=== PATIENT | female | born 1990 | race American Indian/Alaskan Native ===

== ENCOUNTER 2017-06-21 19:23 | Emergency (ER) | payer MEDICAID ==
[2017-06-21 20:07] LABS: Basophils % (Auto) 0.3 % (0.0-1.8); Eosinophils # (Auto) 0.2 K/mm3 (0.0-0.4); Hematocrit 37.2 % (30.3-42.9); Hemoglobin 12.4 gm/dl (10.1-14.3); Lymphocytes # (Auto) 1.3 K/mm3 (1.2-5.4); Lymphocytes % (Auto) 11.9 % (13.4-35.0); Mean Corpuscular HGB Conc 33 % (30-34); Mean Corpuscular Hemoglobin 27 pg (28-32); Mean Corpuscular Volume 81 fl (79-97); Monocytes # (Auto) 0.9 K/mm3 (0.0-0.8); Monocytes % (Auto) 8.7 % (0.0-7.3); Platelet Count 231 K/mm3 (140-440); Red Blood Count 4.61 M/mm3 (3.65-5.03); Red Cell Distribution Width 14.2 % (13.2-15.2)
[2017-06-21 20:18] LABS: Alanine Aminotransferase 17 units/L (7-56); Albumin 3.9 g/dL (3.9-5); BUN/Creatinine Ratio 20; Blood Urea Nitrogen 6 mg/dL (7-17); Calcium 8.6 mg/dL (8.4-10.2); Hemolysis Index 1
[2017-06-21] MEDS ORDERED: NACL 0.9% 1000 ML 1,000 ML IV ONE (20:56)
[2017-06-21] MEDS ORDERED: ZOFRAN IV ONE (20:57)
--- NOTE | 2017-06-21 21:02 | Emergency Department Report ---
ED Abdominal Pain HPI - General Chief Complaint: Abdominal Pain Stated Complaint: PAIN ON LEFT SIDE/18 WEEKS Time Seen by Provider: 06/21/17 20:39 Source: patient Mode of arrival: Ambulatory Limitations: No Limitations - History of Present Illness Initial Comments: Patient is complaining of abdominal pain in the suprapubic area and the right and left lower quadrant and also in the lower back. The pain started 2 days ago of moderate to severe intensity and nonradiating with no aggravating or relieving factor. Patient also complaining of a headache. She denies any fever. She denies any vaginal bleeding. The patient is a 3 and she is presently 18 weeks 4 days Complaint: abdominal pain -: Gradual Location: LLQ, RLQ, suprapubic Radiation: none Migration to: no migration Severity: moderate, severe Quality: aching Consistency: intermittent Improves With: nothing Worsens With: nothing Associated Symptoms: nausea, vomiting - Related Data Previous Rx's Medication Instructions Recorded Last Taken Type Nitrofurantoin [place]/M-Cryst 100 mg PO BID #14 capsule 06/21/17 Unknown Rx [Macrobid CAP] Allergies Allergy/AdvReac Type Severity Reaction Status Date / Time No Known Allergies Allergy Unverified 06/21/17 19:27 ED Review of Systems ROS: Stated complaint: PAIN ON LEFT SIDE/18 WEEKS Other details as noted in HPI Comment: All other systems reviewed and negative ED Past Medical Hx - Past Medical History Previous Medical History?: No - Surgical History Past Surgical History?: No - Social History Smoking Status: Never Smoker Substance Use Type: None - Medications Home Medications: Home Medications Medication Instructions Recorded Confirmed Last Taken Type Nitrofurantoin [place]/M-Cryst 100 mg PO BID #14 capsule 06/21/17 Unknown Rx [Macrobid CAP] ED Physical Exam - General Limitations: No Limitations General appearance: alert, in no apparent distress - Head Head exam: Present: atraumatic, normocephalic - Eye Eye exam: Present: normal appearance. Absent: PERRL - ENT ENT exam: Present: mucous membranes moist - Neck Neck exam: Present: normal inspection. Absent: tenderness - Respiratory Respiratory exam: Present: normal lung sounds bilaterally. Absent: respiratory distress - Cardiovascular Cardiovascular Exam: Present: regular rate, normal rhythm. Absent: systolic murmur, diastolic murmur, rubs, gallop - GI/Abdominal GI/Abdominal exam: Present: soft, distended (gravid uterus), tenderness ( suprapubic tenderness and left lower quadrant tenderness.), normal bowel sounds. Absent: rebound - Rectal Rectal exam: Present: deferred - Extremities Exam Extremities exam: Present: normal inspection, full ROM - Back Exam Back exam: Present: normal inspection, full ROM - Neurological Exam Neurological exam: Present: alert, oriented X3 - Psychiatric Psychiatric exam: Present: normal affect, normal mood - Skin Skin exam: Present: warm, dry, intact, normal color. Absent: rash ED Course Vital Signs 06/21/17 06/21/17 19:27 21:25 Temperature 98 F 98.4 F Pulse Rate 89 69 Respiratory 18 16 Rate Blood Pressure 108/65 Blood Pressure 101/57 [Left] O2 Sat by Pulse 96 100 Oximetry - Reevaluation(s) Reevaluation #1: 06/21/17 22:03 Patient feels much better since that he nausea and vomiting is a lot better. her pain is also a lot better ED Medical Decision Making - Lab Data Result diagrams: 06/21/17 19:41 06/21/17 19:41 Critical care attestation.: If time is entered above; I have spent that time in minutes in the direct care of this critically ill patient, excluding procedure time. ED Disposition Clinical Impression: UTI (urinary tract infection), Hyperemesis Disposition: - TO HOME OR SELFCARE Is pt being admited?: No Does the pt Need Aspirin: No Condition: Stable Instructions: Abdominal Pain (ED) Additional Instructions: Increase oral fluid intake. Take your nausea medication which was given to you by your animal health technician as needed.follow up with your animal health technician in 3-5 days Prescriptions: Nitrofurantoin [place]/M-Cryst [Macrobid CAP] 100 mg PO BID #14 capsule Referrals: JANN YEH MD [Primary Care Provider] - 3-5 Days Time of Disposition: 22:07 Print Language: LATVIAN
[2017-06-21] MEDS ORDERED: TYLENOL PO ONE (21:03)
[2017-06-21 21:21] LABS: Bilirubin,Urine NEG (Negative); Blood,Urine NEG (Negative); Color,Urine Yellow (Yellow); Mucus,Urine 3+ /HPF
[2017-06-21 21:25] VITALS: BP 101/57
[2017-06-21] MEDS ORDERED: MACROBID PO ONE (22:02)
== END 2017-06-21 22:32 | disposition home or self-care (01) ==
LOC: ED 19:23
DX: O23.42 Unspecified infection of urinary tract in pregnancy, second trimester (principal); O21.0 Mild hyperemesis gravidarum; Z3A.18 18 weeks gestation of pregnancy
CPT/HCPCS: 36415; 80053; 81001; 85025; 87086; 96361; 96374; 99283; J2405; J7030

== ENCOUNTER 2017-06-23 17:50 | Emergency (ER) | payer MEDICAID ==
[2017-06-23 18:32] LABS: Basophils % (Auto) 0.1 % (0.0-1.8); Eosinophils # (Auto) 0.1 K/mm3 (0.0-0.4); Eosinophils % (Auto) 0.6 % (0.0-4.3); Hematocrit 38.1 % (30.3-42.9); Hemoglobin 12.3 gm/dl (10.1-14.3); Lymphocytes # (Auto) 0.7 K/mm3 (1.2-5.4); Lymphocytes % (Auto) 6.2 % (13.4-35.0); Mean Corpuscular HGB Conc 32 % (30-34); Mean Corpuscular Hemoglobin 27 pg (28-32); Mean Corpuscular Volume 82 fl (79-97); Monocytes # (Auto) 1.1 K/mm3 (0.0-0.8); Monocytes % (Auto) 8.9 % (0.0-7.3); Platelet Count 235 K/mm3 (140-440); Red Blood Count 4.63 M/mm3 (3.65-5.03); Red Cell Distribution Width 14.3 % (13.2-15.2)
[2017-06-23 18:46] LABS: Alanine Aminotransferase 13 units/L (7-56); Albumin 3.8 g/dL (3.9-5); BUN/Creatinine Ratio 10; Blood Urea Nitrogen 4 mg/dL (7-17); Calcium 8.6 mg/dL (8.4-10.2); Hemolysis Index 1
[2017-06-23 20:08] LABS: Bacteria,Urine 1+ /HPF (Negative); Bilirubin,Urine NEG (Negative); Blood,Urine NEG (Negative); Color,Urine Amber (Yellow); Mucus,Urine 3+ /HPF
--- NOTE | 2017-06-23 20:14 | Ultrasound Report ---
FINAL REPORT EXAM: US OB > = 14 WEEKS FETUS HISTORY: abd pain TECHNIQUE: Obstetrical sonographic imaging was performed. Comparison: None FINDINGS: Images demonstrate single live intrauterine gestation in cephalic presentation. Right lateral placenta grade 0. Calculated AFUA within normal limits subjectively under 24 weeks. heart rate measures 161 beats per minute. Cervical length measures 3.4 centimeters. Too early for anatomical survey. Estimated age as follows: Biparietal diameter 19 weeks 2 days Head circumference 18 weeks 3 days Abdominal circumference 18 weeks 4 days Femur length 18 weeks 1 day Average sonographic gestational age is 18 weeks 4 days with estimated due date of 11/20/2017. HC/AC 1.19. Cephalic index 83.6. Estimated weight 237 grams +/-30 5 grams. There is an anterior uterine fundal fibroid measuring 7.1 centimeters at the left lateral aspect of the uterus exophytically. It is heterogeneous. IMPRESSION: Single live intrauterine gestation in cephalic presentation at 18 weeks 4 days with estimated due date 11/20/2017. heart rate measures 161 beats per minute. Subjectively normal AFUA. Right lateral placenta. 7.1 centimeter left lateral uterine exophytic heterogeneous fibroid. No definite retroplacental abnormality. Cervical length measures 3.4 centimeters, closed.
[2017-06-24] MEDS ORDERED: NORCO 5/325 PO ONE (03:40)
[2017-06-24] MEDS ORDERED: ZOFRAN ODT PO ONE (03:40)
[2017-06-24] MEDS ORDERED: MACROBID PO ONE (03:41)
--- NOTE | 2017-06-24 03:58 | Emergency Department Report ---
HPI - General Chief Complaint: Abdominal Pain Time Seen by Provider: 06/24/17 03:16 - HPI HPI: The patient is a 27-year-old female, EGA 18 was, presents for evaluation of abdominal pain. The patient reports left lower quadrant abdominal pain for the past 3 days, crampy in quality, moderate to severe, exacerbated with movement. The patient also reports associated mild dysuria. The patient denies fever, chills, night sweats, diarrhea, blood in the stool, dark tarry stool, hematuria, flank pain, genital discharge, vaginal bleeding, or trauma to the abdomen back, back, or flank ED Past Medical Hx - Past Medical History Previous Medical History?: No - Surgical History Past Surgical History?: No - Social History Smoking Status: Never Smoker Substance Use Type: None - Medications Home Medications: Home Medications Medication Instructions Recorded Confirmed Last Taken Type Nitrofurantoin [place]/M-Cryst 100 mg PO BID #14 capsule 06/21/17 Unknown Rx [Macrobid CAP] Acetaminophen/Codeine [Tylenol #3] 1 tab PO Q6H PRN #7 tab 06/24/17 Unknown Rx ED Review of Systems ROS: Stated complaint: ABDOMINAL PAIN Other details as noted in HPI Constitutional: denies: fever ENT: denies: throat or neck pain Respiratory: denies: cough, shortness of breath Cardiovascular: denies: chest pain Endocrine: denies unexplained weight loss or gain Gastrointestinal: reports abdominal pain, nausea Genitourinary: denies: dysuria Musculoskeletal: denies: leg swelling Skin: denies: rash Neurological: denies: headache Hematological/Lymphatic: denies: easy bleeding or easy bruising Psych: denies sadness or hopelessness Physical Exam - Physical Exam Vital Signs: Vital Signs 06/23/17 17:59 Temperature 98.5 F Pulse Rate 86 Respiratory 24 Rate Blood Pressure 171/78 [Right] O2 Sat by Pulse 99 Oximetry Physical Exam: General: well-nourished, well-developed, no acute distress Head: Normocephalic, atraumatic Eyes: normal sclera ENT: Mucous membranes are pink and moist Neck: trachea midline, neck supple, No neck stiffness, no cervical adenopathy Respiratory: Breath sounds equal bilaterally, no wheezing, rales, or rhonchi Cardio: S1 and S2 present, no murmurs, rubs, gallops, capillary refill is brisk Abdomen: Normoactive bowel sounds, soft abdomen, left lower quadrant tenderness to palpation present, no rigidity, no guarding or rebound tenderness Chest WALL/Back: No tenderness to palpation of the chest wall, no CVA tenderness with percussion Musc: No pitting edema Skin: No rash Neuro: no facial drooping, normal speech Psych: Normal affect ED Course Vital Signs 06/23/17 17:59 Temperature 98.5 F Pulse Rate 86 Respiratory 24 Rate Blood Pressure 171/78 [Right] O2 Sat by Pulse 99 Oximetry ED Medical Decision Making - Lab Data Result diagrams: 06/23/17 18:13 06/23/17 18:13 - Medical Decision Making The patient was seen and examined by myself. The patient is placed on a lunchroom monitor and continuous pulse ox. On initial evaluation, the patient was found to be in no distress. Evaluation orders were placed. The patient is given by mouth pain medicine. Lab results revealed findings consistent with urinary tract infection. The patient given a dose of Macrobid. Ultrasound of the pelvis exhibits a 7 cm left-sided uterine fibroid, and confirmed intrauterine with normal heart rate. The patient was reevaluated and reported that their symptoms were markedly improved. The patient is stable for discharge with outpatient follow-up. The patient is given follow-up and return instructions. The patient had a prescription for Macrobid filled within the past one day. The patient expressed understanding and agreed with the plan. The patient is discharged in stable condition. Critical care attestation.: If time is entered above; I have spent that time in minutes in the direct care of this critically ill patient, excluding procedure time. ED Disposition Clinical Impression: Acute lower UTI (urinary tract infection), Acute abdominal pain in left lower quadrant Fibroid, uterine Qualifiers: Uterine leiomyoma location: unspecified location Qualified Code(s): D25.9 - Leiomyoma of uterus, unspecified Disposition: - TO HOME OR SELFCARE Is pt being admited?: No Does the pt Need Aspirin: No Condition: Stable Instructions: Uterine Fibroids (ED), Abdominal Pain (ED), Abdominal Pain in (ED) Referrals: JANN YEH MD [Primary Care Provider] - 3-5 Days Time of Disposition: 03:50
--- NOTE | 2017-06-24 05:08 | Ultrasound Report ---
FINAL REPORT EXAM: US PELVIC LIMITED HISTORY: LLQ abd pain TECHNIQUE: Transabdominal imaging was obtained the pelvis including Doppler interrogation of the left adnexa and uterus. FINDINGS: There are 2 myometrial masses in the left side of the uterus 1 measuring 7.1 cm in diameter in the other measuring 6.5 cm in diameter compatible with fibroids. The endometrial stripe is not seen. There is a small amount of free fluid in the left adnexa. The left ovary is not seen. The right ovary is not identified also. IMPRESSION: Two large left-sided uterine fibroids measure up to 7.1 cm in diameter. Small amount of free fluid in the left adnexa. The ovaries are not identified.
[2017-06-24 05:51] VITALS: BP 128/76
== END 2017-06-24 05:51 | disposition home or self-care (01) ==
LOC: ED 17:50
DX: O23.42 Unspecified infection of urinary tract in pregnancy, second trimester (principal); O26.892 Other specified pregnancy related conditions, second trimester; D25.9 Leiomyoma of uterus, unspecified; Z3A.14 14 weeks gestation of pregnancy
CPT/HCPCS: 36415; 76805; 76857; 80053; 81001; 84703; 85025; 99284; Q0162

== ENCOUNTER 2017-11-14 19:44 | Inpatient (IN) | payer MEDICAID ==
--- NOTE | 2017-11-14 19:57 | Emergency Department Report ---
HPI - General Time Seen by Provider: 11/14/17 19:52 - HPI HPI: Room 21 The patient is a 27-year-old female presented with a chief complaint of labor. The patient is brought to 39 weeks gestational age who states approximately 1 hour prior to arrival she began having contractions approximately 10 minutes apart. Patient does not recall passing any fluid vaginally. Location: Pelvis Duration: One hour prior to arrival Quality: Contractions Severity: Severe Modifying factors: [see above] Context: [see above] Mode of transportation: [not driving] ED Past Medical Hx - Family History Family history: no significant - Social History Smoking Status: Never Smoker Substance Use Type: None - Medications Home Medications: Home Medications Medication Instructions Recorded Confirmed Last Taken Type Nitrofurantoin [place]/M-Cryst 100 mg PO BID #14 capsule 06/21/17 Unknown Rx [Macrobid CAP] Acetaminophen/Codeine [Tylenol #3] 1 tab PO Q6H PRN #7 tab 06/24/17 Unknown Rx ED Review of Systems ROS: Stated complaint: LABOR Other details as noted in HPI Comment: Unobtainable due to pts medical conditions Physical Exam - Physical Exam Physical Exam: GENERAL: The patient is well-developed well-nourished female lying on stretcher screaming, appearing very anxious and to be in significant discomfort HEENT: Normocephalic. Atraumatic. NECK: Trachea midline CHEST/LUNGS: Airway patent HEART/CARDIOVASCULAR: Regular. There is no tachycardia. There is no gallop rub or murmur. ABDOMEN: Abdomen is gravid SKIN: There is no rash. There is no edema. There is no diaphoresis. NEURO: The patient is awake, alert, and oriented. The patient has normal speech MUSCULOSKELETAL: There is no evidence of acute injury. PELVIC: Mucous plug past. scalp palpated approximately 10 cm from the vaginal introitus ED Course - Consultations Consultation #1: 11/14/17 19:[address] Roberts at bedside ED Medical Decision Making - Differential Diagnosis labor Critical care attestation.: If time is entered above; I have spent that time in minutes in the direct care of this critically ill patient, excluding procedure time. ED Disposition Clinical Impression: Active labor at term Disposition: DC-09 OP ADMIT IP TO THIS HOSP Is pt being admited?: No Does the pt Need Aspirin: No Condition: Fair
[2017-11-14] MEDS ORDERED: PITOCin/NS 20 UNIT/1000ML DRIP 20,000 MILLIUNITS/1,000 ML BAG IV ONE (20:36)
[2017-11-14] MEDS ORDERED: STADOL ONE (20:52)
[2017-11-14] MEDS ORDERED: XYLOCAINE 2% INFILTRATI ONE ×3 (20:56→21:25)
[2017-11-14] MEDS: PITOCin/NS 20 UNIT/1000ML DRIP 20 UNITS/1,000 ML BAG IV SCH ×2 (21:00→22:26)
[2017-11-14] MEDS ORDERED: STADOL IV PRN (21:25)
[2017-11-14] MEDS ORDERED: MINERAL OIL PO PRN (21:25)
--- NOTE | 2017-11-14 21:25 | History and Physical Report ---
History of Present Illness Date of admission: 11/14/17 20:40 Chief complaint: uterine contractions History of present illness: 27yo at 39 4/7 weeks, BLAINE 11/17/2017, presented to [facility] ER in active labor, fully dilated, bulging membranes, vertex presentation. She was writhing in pain and [place] every 10 min. She reports contractions starting at 1800 and denies loss of fluid. I was called to the operating room by Dr. Kim to assist in delivery of a full term infant in the emergency room. I presented to the room and patient was 10cm, bulging membranes and pushing. heart tones were recorded 2004 159 2006 163 2010 158 2013 162 2014 Delivery of infant 2020 placenta delivered. She is a patient of [facility] and has had routine care since 7 weeks gestation. Her history is significant for fibroid uterus, alpha thalassemia trait, echogenic intracardiac focus on the fetus and mild anemia. Past History Past Medical History: hematologic disorders Past Surgical History: no surgical history Social history: other (mother present for delivery) - Obstetrical History Expected Date of Delivery: 11/17/17 Actual Gestation: 39 Week(s) 4 Day(s) : 1 Medications and Allergies Allergies Allergy/AdvReac Type Severity Reaction Status Date / Time No Known Allergies Allergy Unverified 06/21/17 19:27 Home Medications Medication Instructions Recorded Confirmed Last Taken Type Nitrofurantoin [place]/M-Cryst 100 mg PO BID #14 capsule 06/21/17 Unknown Rx [Macrobid CAP] Acetaminophen/Codeine [Tylenol #3] 1 tab PO Q6H PRN #7 tab 06/24/17 Unknown Rx - Vital Signs Vital signs: Vital Signs Pulse BP 59 L 127/79 11/14/17 20:42 11/14/17 20:42 Temp Pulse Resp BP Pulse Ox 96.8 F L 59 L 18 127/79 11/14/17 20:43 11/14/17 20:43 11/14/17 20:43 11/14/17 20:43 - Obstetrical FHR: auscultation normal Cervical Dilatation: 10 Cervical Effacement Percentage: 100 station: +3 Results All other labs normal. Assessment and Plan - Patient Problems (1) 39 weeks gestation of Current Visit: Yes Status: Acute Plan to address problem: Delivered- see delivery note (2) Fibroid uterus Current Visit: Yes Status: Acute Plan to address problem: stable (3) Alpha thalassemia minor trait Current Visit: Yes Status: Acute Plan to address problem: Will make pediatric team aware.
--- NOTE | 2017-11-14 21:45 | Procedure Note ---
OB Delivery Note - Vaginal Delivery position: OA Intrapartum events: precipitous labor- <3hr Delivery induction: none Delivery augmentation: rupture of membranes Delivery monitor: external FHT Route of delivery: Delivery placenta: spontaneous Episiotomy: none Delivery laceration: 1st degree (right labial) Delivery repair: vicryl Anesthesia: other (given Stadol 2g ) Delivery comments: Precipitous delivery of term in ER Rm 21. Patient presented in active labor, fully dilated, bulging membranes went on to delivery viable female infant at 2013. Infant was vigorous upon delivery. Placenta was delivered at 2019 intact and sent to pathology. Patient was transported to Labor and delivery where vaginal exam revealed a right labial laceration, 1st degree x 2. The posterior laceration was repaired with 3-0 Vicryl and anterior laceration was hemostatic. Patient was given 8ml 2% Lidocaine intradermal prior to repair. - Infant A at 1 minute: 8 at 5 minutes: 9 Infant Gender: Female (Weight 2845g 6lb 4oz)
[2017-11-14] MEDS ORDERED: PHENERGAN PO PRN (21:47)
[2017-11-14] MEDS ORDERED: TUCKS PAD TP PRN (21:47)
[2017-11-14] MEDS ORDERED: PHENERGAN PR PRN (21:47)
[2017-11-14] MEDS ORDERED: BENADRYL PO PRN (21:47)
[2017-11-14] MEDS ORDERED: DULCOLAX PR PRN (21:47)
[2017-11-14] MEDS ORDERED: TYLENOL PO PRN (21:47)
[2017-11-14] MEDS ORDERED: MILK OF MAGNESIA PO PRN (21:47)
[2017-11-14] MEDS ORDERED: LANSINOH TP PRN (21:47)
[2017-11-14] MEDS ORDERED: NORCO 5/325 PO PRN (21:47)
[2017-11-14] MEDS ORDERED: ZOFRAN IV PRN (21:47)
[2017-11-14] MEDS ORDERED: SODIUM CHLORIDE FLUSH SYRINGE 10 ML IV NR (22:00)
[2017-11-14] MEDS ORDERED: LACTATED RINGERS 1,000 ML IV SCH (22:00)
[2017-11-14 22:03] LABS: Hematocrit 36.7 % (30.3-42.9); Hemoglobin 11.7 gm/dl (10.1-14.3); Mean Corpuscular HGB Conc 32 % (30-34); Mean Corpuscular Volume 78 fl (79-97); Platelet Count 217 K/mm3 (140-440); Red Blood Count 4.69 M/mm3 (3.65-5.03); Red Cell Distribution Width 16.7 % (13.2-15.2)
[2017-11-14 22:07] LABS: Mean Corpuscular Hemoglobin 25 pg (28-32)
[2017-11-14] MEDS: MOTRIN PO SCH (23:48)
[2017-11-15] MEDS: MOTRIN PO SCH ×2 (05:46→23:08)
[2017-11-15] MEDS ORDERED: BOOSTRIX IM ONE (06:00)
[2017-11-15 10:21] LABS: Hematocrit 25.3 % (30.3-42.9)
--- NOTE | 2017-11-15 11:38 | Progress Note ---
Assessment and Plan A/P PPD#1 s/p doing well VSS acute anemia on iron bid continue PP care Subjective - Subjective Date of service: 11/15/17 Principal diagnosis: Patient reports: appetite normal, voiding normally, pain well controlled, flatus , ambulating normally [place]: doing well Objective - Vital Signs Latest vital signs: Vital Signs Temp Pulse Resp BP BP Pulse Ox 11/15/17 07:16 98.2 F 73 20 111/61 99 11/15/17 04:33 98.4 F 67 18 109/61 11/14/17 23:54 97.3 F L 67 18 113/66 11/14/17 21:30 16 11/14/17 21:00 18 11/14/17 20:43 96.8 F L 59 L 18 127/79 11/14/17 20:42 59 L 127/79 Intake and Output 11/14/17 11/15/17 11/15/17 23:59 07:59 15:59 Intake Total 125 480 120 Balance 125 480 120 Intake: IV 125 PITOCin/NS 20 UNIT/1000ML 125 DRIP 20 units In 1,000 ml @ 125 mls/hr IV DIRECT TWAN Rx#:[id number] Oral 120 Intake, Free Water 480 Other: Total, Intake Amount 120 # Voids Void 1 1 Weight 58.967 kg - Exam Breasts: Present: normal Cardiovascular: Present: Regular rate, Normal S1 Lungs: Present: Clear to auscultation, Normal air movement Abdomen: Present: normal appearance, soft, normal bowel sounds. Absent: distention, tenderness, guarding Vulva: both: normal Uterus: Present: normal, firm, fundal height below umbilicus. Absent: bogginess , tenderness Extremities: Present: normal Deep Tendon Reflex Grade: Normal +2 - Labs Labs: Abnormal lab results 11/14/17 11/15/17 Range/Units 19:50 09:29 Hgb 8.0 L D (10.1-14.3) gm/dl Hct 25.3 L D (30.3-42.9) % MCV 78 L (79-97) fl MCH 25 L (28-32) pg RDW 16.7 H (13.2-15.2) %
--- NOTE | 2017-11-15 15:24 | Discharge Summary ---
Providers - Providers Date of Admission: 11/14/17 20:40 Date of discharge: 11/16/17 Attending physician: CONSTANTINE FONSECA Primary care physician: CONSTANTINE FONSECA Hospitalization Reason for admission: active labor Delivery: Episiotomy: none Incision: normal Other procedures: none complications: none Discharge diagnosis: IUP at term delivered baby: female Condition at discharge: Good Disposition: DC-01 TO HOME OR SELFCARE Plan - Discharge Medications Prescriptions: Ferrous Sulfate 325 mg PO BID #30 tablet. Ibuprofen [Motrin] 600 mg PO Q8H PRN #30 tablet PRN Reason: Pain oxyCODONE /ACETAMINOPHEN [Percocet 5/325] 1 tab PO Q6HR PRN #30 tablet PRN Reason: Pain - Provider Discharge Summary Activity: routine, no sex for 6 weeks, no strenuous exercise Diet: routine Instructions: routine Additional instructions: [] Smoking cessation referral if applicable(refer to patient education folder for contact #) [] Refer to [facility] Booklet Call your doctor immediately for: * Fever > 100.5 * Heavy vaginal bleeding ( >1 pad per hour) * Severe persistent headache * Shortness of breath * Reddened, hot, painful area to leg or breast * Drainage or odor from incision. * Keep incision clean and dry at all times and follow doctor's instructions regarding bathing/showering - Follow up plan Follow up: CONSTANTINE FONSECA MD [Primary Care Provider] - 12/12/17
[2017-11-15] MEDS: FEOSOL PO SCH (21:51)
[2017-11-16] MEDS: MOTRIN PO SCH ×2 (06:25→15:30)
[2017-11-16] MEDS: FEOSOL PO SCH (15:30)
[2017-11-16 16:21] VITALS: BP 129/70
== END 2017-11-16 19:13 | disposition home or self-care (01) | DRG 775 ==
LOC: ED 19:44 → EDSTATUS 20:35 → LD 20:40 → OB 23:20
PROVIDERS: ADMIT Obstetrics & Gynecology; ATTEND Obstetrics & Gynecology
PROC: 10E0XZZ Delivery of Products of Conception, External Approach (ICD-10-PCS; principal; 2017-11-14)
PROC: 0HQ9XZZ Repair Perineum Skin, External Approach (ICD-10-PCS; 2017-11-14)
PROC: 10907ZC Drainage of Amniotic Fluid, Therapeutic from Products of Conception, Via Natural or Artificial Opening (ICD-10-PCS; 2017-11-14)
PROC: 3E0234Z Introduction of Serum, Toxoid and Vaccine into Muscle, Percutaneous Approach (ICD-10-PCS; 2017-11-15)
DX: O62.3 Precipitate labor (principal); O34.13 Maternal care for benign tumor of corpus uteri, third trimester; O99.02 Anemia complicating childbirth; D56.3 Thalassemia minor; O70.0 First degree perineal laceration during delivery; Z3A.39 39 weeks gestation of pregnancy; Z37.0 Single live birth; Z23 Encounter for immunization; D25.9 Leiomyoma of uterus, unspecified
CPT/HCPCS: 36415; 85014; 85018; 85027; 86592; 86850; 86900; 86901; 87806; 88307; 90471; 90715; J0595; J2590

== ENCOUNTER 2019-10-02 14:34 | Emergency (ER) | payer OTHER ==
[2019-10-02 14:47] VITALS: BP 188/62
--- NOTE | 2019-10-02 16:19 | Emergency Department Report ---
Suture/Staple Removal - HPI Chief Complaint: Laceration/Recheck/Suture Stated Complaint: RT HAND STITCHS REMOVED Time Seen by Provider: 10/02/19 16:08 When Sutures or [place] Placed: 09/15/19 Wound Location: right pinky and ring finger ED Review of Systems ROS: Stated complaint: RT HAND STITCHS REMOVED Other details as noted in HPI Comment: All other systems reviewed and negative ED Past Medical Hx - Past Medical History Previous Medical History?: No Hx Hypertension: No Hx Congestive Heart Failure: No Hx Diabetes: No Hx Deep Vein Thrombosis: No Hx Renal Disease: No Hx Sickle Cell Disease: (trait) Hx Seizures: No Hx Asthma: No Hx COPD: No Hx HIV: No - Surgical History Past Surgical History?: No - Social History Smoking Status: Never Smoker Substance Use Type: None - Medications Home Medications: Home Medications Medication Instructions Recorded Confirmed Last Taken Type Nitrofurantoin [place]/M-Cryst 100 mg PO BID #14 capsule 06/21/17 Unknown Rx [Macrobid CAP] Acetaminophen/Codeine [Tylenol #3] 1 tab PO Q6H PRN #7 tab 06/24/17 Unknown Rx Ferrous Sulfate 325 mg PO BID #30 tablet. 11/15/17 Unknown Rx Ibuprofen [Motrin] 600 mg PO Q8H PRN #30 tablet 11/15/17 Unknown Rx oxyCODONE /ACETAMINOPHEN [Percocet 1 tab PO Q6HR PRN #30 tablet 11/15/17 Unknown Rx 5/325] cephALEXin [Keflex] 500 mg PO Q8HR 7 Days #21 cap 09/16/19 Unknown Rx traMADoL [Ultram] 50 mg PO Q6HR PRN #12 tablet 09/16/19 Unknown Rx Neomycin/Bacitracin/Polymyxinb 1 applicatio TP BID #1 oint...g. 10/02/19 Unknown Rx [Triple Antibiotic Ointment] Sulfamethoxazole/Trimethoprim 1 each PO BID 7 Days #14 tablet 10/02/19 Unknown Rx [Bactrim DS TAB] Suture Removal Exam - Exam General: Vital signs noted. No distress. Alert and acting appropriately. Wound: Yes Pus (upon removal of sutures), No Pathologic Erythema, No Tenderness, No Wound Dehiscence Other Systems: All other systems reviewed and are unremarkable. ED Course Vital Signs 10/02/19 14:46 Temperature 97.8 F Pulse Rate 59 L Respiratory 16 Rate Blood Pressure 188/62 [Right] O2 Sat by Pulse 100 Oximetry ED Recheck MDM - Medical Decision Making Patient is a 29-year-old female presents emergency room with complaints of a suture removal from the right pinky and ring finger. She had them placed in the emergency department on 09/15/2019. She states that she was instructed to return in 10 days but she did not. She states that the area has also been getti ng wet at work. She reports that she completed her antibiotics. She states that she was given a tetanus immunization. She denies any increased pain, fever, drainage, chills, vomiting, any symptoms. She denies any past medical history allergies medications. All sutures were removed without difficulty, there was a trace amount of purulent drainage upon removal of the sutures, there is no erythema of the finger, no edema of the finger, no wound dehiscence, no obvious drainable abscess at this time. Patient will be placed on Bactrim due to small amount of pus drainage. Advised patient to please take medication as prescribed. Please keep area clean, dry, covered. May wash with antibacterial soap and water twice a day and immediately dry. No hot tub, no pool, no soaking in water. Follow-up with a primary care doctor in the next 2 to 3 days for reexamination. Return to emergency room for any new or worsening symptoms. Critical care attestation.: If time is entered above; I have spent that time in minutes in the direct care of this critically ill patient, excluding procedure time. ED Disposition Clinical Impression: Visit for suture removal Cellulitis Qualifiers: Site of cellulitis: extremity Site of cellulitis of extremity: upper extremity Laterality: right Qualified Code(s): L03.113 - Cellulitis of right upper limb Disposition: DC-01 TO HOME OR SELFCARE Is pt being admited?: No Does the pt Need Aspirin: No Condition: Stable Instructions: Suture Removal (ED), Cellulitis (ED) Additional Instructions: lease take medication as prescribed. Please keep area clean, dry, covered. May wash with antibacterial soap and water twice a day and immediately dry. No hot tub, no pool, no soaking in water. Follow-up with a primary care doctor in the next 2 to 3 days for reexamination. Return to emergency room for any new or worsening symptoms. Prescriptions: Sulfamethoxazole/Trimethoprim [Bactrim DS TAB] 1 each PO BID 7 Days #14 tablet Neomycin/Bacitracin/Polymyxinb [Triple Antibiotic Ointment] 1 applicatio TP BID #1 oint...g. Referrals: ZACHERY PHILLIPS MD [Staff Physician] - 2-3 Days [facility] [Provider Group] - 2-3 Days [facility] [Outside] - 2-3 Days Time of Disposition: 16:23 Print Language: SLOVENIAN
== END 2019-10-02 16:33 | disposition home or self-care (01) ==
LOC: ED 14:34
DX: L03.113 Cellulitis of right upper limb (principal); Z48.02 Encounter for removal of sutures; D57.3 Sickle-cell trait; Z79.899 Other long term (current) drug therapy
CPT/HCPCS: 99282

== ENCOUNTER 2021-07-22 12:04 | Observation (INO) | payer OTHER ==
[2021-07-22 12:59] LABS: Basophils % (Auto) 0.5 % (0.0-1.8); Eosinophils # (Auto) 0.1 K/mm3 (0.0-0.4); Eosinophils % (Auto) 2.1 % (0.0-4.3); Hematocrit 39.1 % (30.3-42.9); Hemoglobin 13.2 gm/dl (10.1-14.3); Lymphocytes # (Auto) 1.4 K/mm3 (1.2-5.4); Lymphocytes % (Auto) 23.4 % (13.4-35.0); Mean Corpuscular HGB Conc 34 % (30-34); Mean Corpuscular Volume 80 fl (79-97); Monocytes # (Auto) 0.4 K/mm3 (0.0-0.8); Monocytes % (Auto) 7.7 % (0.0-7.3); Platelet Count 307 K/mm3 (140-440)
[2021-07-22 13:11] LABS: Blood Urea Nitrogen 9 mg/dL (7-17); Calcium 9.4 mg/dL (8.4-10.2); Hemolysis Index 14
[2021-07-22 13:15] LABS: BUN/Creatinine Ratio 18
--- NOTE | 2021-07-22 13:50 | Ultrasound Report ---
ULTRASOUND OBSTETRIC Indication: abd pain Findings: No intrauterine identified There is a complex lesion within the left ovary that demonstrates some peripheral flow. This lesion m easures approximately 1.5 x 1.0 cm. Impression: No intrauterine identified. Complex cystic structure with peripheral flow within the left o vary could represent a complex cyst however ectopic is not excluded CRITICAL RESULT: Possible ectopic within the left ovary Time of Discovery: 12:40 PM on the day of the exam Time of Communication: 12:45 PM on the day of exam Licensed Practitioner Receiving Report: Dr. Andrade Read Back Performed: Yes. Signer Name: Norman Malcolm MD Signed: 07/22/2021 1:46 PM Workstation Name: [id number]
--- NOTE | 2021-07-22 13:57 | Emergency Department Report ---
<JANN MARTINEZ - Last Filed: 07/22/21 14:52> ED General Adult HPI - General Chief complaint: Abdominal Pain Stated complaint: POSSIBLE ECTOPIC Time Seen by Provider: 07/22/21 13:48 Source: patient, RN notes reviewed, old records reviewed Mode of arrival: Ambulatory Limitations: No Limitations - History of Present Illness Initial comments: During the history and physical examination, I am chaperoned by Kyleigh Ramirez This is a pleasant and cooperative 31-year-old female, who is 2, para 1, last menstrual period early May, who is currently and believes that she has conceived naturally, presenting to the ER with a complaint of left lower quadrant pain, and possible ectopic . She denies urinary symptoms. Pain is in the left lower quadrant does not radiate anywhere. The patient denies additional complaints. She had an outpatient ultrasound at a clinic which suggested a possible ectopic , and she was thus referred to the emergency room emergently. No care as of yet, does not have an outpatient peanut blancher Declines pain medication at this time -: Gradual, week(s) (1) Location: abdomen (Left lower quadrant) Radiation: non-radiation Severity scale (0 -10): 4 Quality: aching Consistency: intermittent Improves with: none Worsens with: none Associated Symptoms: denies other symptoms - Related Data Previous Rx's Medication Instructions Recorded Last Taken Type Nitrofurantoin [place]/M-Cryst 100 mg PO BID #14 capsule 06/21/17 Unknown Rx [Macrobid CAP] Acetaminophen/Codeine [Tylenol #3] 1 tab PO Q6H PRN #7 tab 06/24/17 Unknown Rx Ferrous Sulfate 325 mg PO BID #30 tablet.dr 11/15/17 Unknown Rx Ibuprofen [Motrin] 600 mg PO Q8H PRN #30 tablet 11/15/17 Unknown Rx oxyCODONE /ACETAMINOPHEN [Percocet 1 tab PO Q6HR PRN #30 tablet 11/15/17 Unknown Rx 5/325] cephALEXin [Keflex] 500 mg PO Q8HR 7 Days #21 cap 09/16/19 Unknown Rx traMADoL [Ultram] 50 mg PO Q6HR PRN #12 tablet 09/16/19 Unknown Rx Neomycin/Bacitracin/Polymyxinb 1 applicatio TP BID #1 oint...g. 10/02/19 Unknown Rx [Triple Antibiotic Ointment] Sulfamethoxazole/Trimethoprim 1 each PO BID 7 Days #14 tablet 10/02/19 Unknown Rx [Bactrim DS TAB] Allergies Allergy/AdvReac Type Severity Reaction Status Date / Time No Known Allergies Allergy Verified 09/15/19 22:47 ED Review of Systems Comment: All other systems reviewed and negative Gastrointestinal: abdominal pain ED Past Medical Hx - Past Medical History Hx Hypertension: No Hx Congestive Heart Failure: No Hx Diabetes: No Hx Deep Vein Thrombosis: No Hx Renal Disease: No Hx Sickle Cell Disease: (trait) Hx Seizures: No Hx Asthma: No Hx COPD: No Hx HIV: No - Social History Smoking Status: Never Smoker Substance Use Type: None - Medications Home Medications: Home Medications Medication Instructions Recorded Confirmed Last Taken Type Nitrofurantoin [place]/M-Cryst 100 mg PO BID #14 capsule 06/21/17 Unknown Rx [Macrobid CAP] Acetaminophen/Codeine [Tylenol #3] 1 tab PO Q6H PRN #7 tab 06/24/17 Unknown Rx Ferrous Sulfate 325 mg PO BID #30 tablet.dr 11/15/17 Unknown Rx Ibuprofen [Motrin] 600 mg PO Q8H PRN #30 tablet 11/15/17 Unknown Rx oxyCODONE /ACETAMINOPHEN [Percocet 1 tab PO Q6HR PRN #30 tablet 11/15/17 Unknown Rx 5/325] cephALEXin [Keflex] 500 mg PO Q8HR 7 Days #21 cap 09/16/19 Unknown Rx traMADoL [Ultram] 50 mg PO Q6HR PRN #12 tablet 09/16/19 Unknown Rx Neomycin/Bacitracin/Polymyxinb 1 applicatio TP BID #1 oint...g. 10/02/19 Unknown Rx [Triple Antibiotic Ointment] Sulfamethoxazole/Trimethoprim 1 each PO BID 7 Days #14 tablet 10/02/19 Unknown Rx [Bactrim DS TAB] ED Physical Exam - General Limitations: No Limitations General appearance: alert, in no apparent distress - Head Head exam: Present: atraumatic, normocephalic - Eye Eye exam: Present: normal appearance, EOMI. Absent: nystagmus - ENT ENT exam: Present: normal exam, normal orophraynx, mucous membranes moist, normal external ear exam - Neck Neck exam: Present: normal inspection, full ROM. Absent: tenderness, meningismus - Respiratory Respiratory exam: Present: normal lung sounds bilaterally. Absent: respiratory distress, rhonchi, stridor, decreased breath sounds - Cardiovascular Cardiovascular Exam: Present: regular rate, normal rhythm, normal heart sounds. Absent: bradycardia, tachycardia, irregular rhythm, systolic murmur, diastolic murmur, rubs, gallop - GI/Abdominal GI/Abdominal exam: Present: soft. Absent: distended, tenderness, guarding, rebound, rigid, pulsatile mass - Extremities Exam Extremities exam: Present: normal inspection, full ROM, other (2+ pulses noted in the bilateral upper and lower extremities. There is no palpable cord. negative Homans sign. Muscular compartments are soft. The pelvis is stable.). Absent: pedal edema, calf tenderness - Back Exam Back exam: Present: normal inspection, full ROM. Absent: tenderness, CVA tenderness (R), CVA tenderness (L), paraspinal tenderness, vertebral tenderness - Neurological Exam Neurological exam: Present: alert, oriented X3, other (No facial droop. Tongue midline. Extraocular movements intact bilaterally. Facial sensation intact to light touch in V1, V2, V3 distribution bilaterally. 5 and a 5 strength in 4 extremities. Sensation intact to light touch in 4 extremities.). Absent: motor sensory deficit - Psychiatric Psychiatric exam: Present: anxious - Skin Skin exam: Present: warm, dry, intact, normal color. Absent: rash ED Course - Reevaluation(s) Reevaluation #1: 07/22/21 14:06 Differential diagnosis, including but not limited to: Ectopic , heterotopic , ovarian cyst Assessment and plan: 31-year-old female, who was afebrile, with reassuring vital signs, 2, para 1, with history, physical and ultrasound suggestive of unruptured ectopic . Abdomen soft and benign, without rebound, guarding or peritoneal signs. Laboratory studies essentially unremarkable at this time. Quant hCG approximately 3500. Patient may be a candidate for methotrexate. Have requested peanut blancher, Dr. Baca, who is cur rently on-call for unattached [employer], evaluate the patient, and discussed surgical versus medical management. Dr. Baca will come by and evaluate the patient shortly. Patient is aware of the plan of care, and agreeable. 07/22/21 14:52 Care will be transferred to the oncoming ER physician, Dr. Ynes Solitario, to follow-up on [employer]'s recommendations, and arrange for final disposition Patient resting comfortably in stretcher at this time, and in no acute distress ED Medical Decision Making - Lab Data Result diagrams: 07/22/21 12:38 07/22/21 12:38 Vital Signs 07/22/21 12:20 Temperature 98.7 F Pulse Rate 98 H Respiratory 18 Rate Blood Pressure 110/69 [Right] O2 Sat by Pulse 100 Oximetry Lab Results 07/22/21 07/22/21 07/22/21 Range/Units 12:38 12:38 12:38 WBC 5.8 (4.5-11.0) K/mm3 RBC 4.90 (3.65-5.03) M/mm3 Hgb 13.2 (10.1-14.3) gm/dl Hct 39.1 (30.3-42.9) % MCV 80 (79-97) fl MCH 27 L (28-32) pg MCHC 34 (30-34) % RDW 14.0 (13.2-15.2) % Plt Count 307 (140-440) K/mm3 Lymph % (Auto) 23.4 (13.4-35.0) % Mcdonald % (Auto) 7.7 H (0.0-7.3) % Eos % (Auto) 2.1 (0.0-4.3) % Baso % (Auto) 0.5 (0.0-1.8) % Lymph # (Auto) 1.4 (1.2-5.4) K/mm3 Mcdonald # (Auto) 0.4 (0.0-0.8) K/mm3 Eos # (Auto) 0.1 (0.0-0.4) K/mm3 Baso # (Auto) 0.0 (0.0-0.1) K/mm3 Seg Neutrophils % 66.3 (40.0-70.0) % Seg Neutrophils # 3.8 (1.8-7.7) K/mm3 Sodium 134 L (137-145) mmol/L Potassium 3.9 (3.6-5.0) mmol/L Chloride 101.9 (98-107) mmol/L Carbon Dioxide 17 L (22-30) mmol/L Anion Gap 19 mmol/L BUN 9 (7-17) mg/dL Creatinine 0.5 L (0.6-1.2) mg/dL Estimated GFR > 60 ml/min BUN/Creatinine Ratio 18 % Glucose 77 (65-100) mg/dL Calcium 9.4 (8.4-10.2) mg/dL HCG, Quant 3510 H (0-4) mIU/mL Blood Type Ord Rhogam Gestat Weeks WEEKS 07/22/21 Range/Units Unknown WBC (4.5-11.0) K/mm3 RBC (3.65-5.03) M/mm3 Hgb (10.1-14.3) gm/dl Hct (30.3-42.9) % MCV (79-97) fl MCH (28-32) pg MCHC (30-34) % RDW (13.2-15.2) % Plt Count (140-440) K/mm3 Lymph % (Auto) (13.4-35.0) % Mcdonald % (Auto) (0.0-7.3) % Eos % (Auto) (0.0-4.3) % Baso % (Auto) (0.0-1.8) % Lymph # (Auto) (1.2-5.4) K/mm3 Mcdonald # (Auto) (0.0-0.8) K/mm3 Eos # (Auto) (0.0-0.4) K/mm3 Baso # (Auto) (0.0-0.1) K/mm3 Seg Neutrophils % (40.0-70.0) % Seg Neutrophils # (1.8-7.7) K/mm3 Sodium (137-145) mmol/L Potassium (3.6-5.0) mmol/L Chloride (98-107) mmol/L Carbon Dioxide (22-30) mmol/L Anion Gap mmol/L BUN (7-17) mg/dL Creatinine (0.6-1.2) mg/dL Estimated GFR ml/min BUN/Creatinine Ratio % Glucose (65-100) mg/dL Calcium (8.4-10.2) mg/dL HCG, Quant (0-4) mIU/mL Blood Type O POSITIVE Ord Rhogam Gestat Weeks Rh pos WEEKS - Radiology Data Radiology results: pending, report reviewed, image reviewed ULTRASOUND OBSTETRIC Indication: abd pain Findings: No intrauterine identified There is a complex lesion within the left ovary that demonstrates some peripheral flow. This lesion measures approximately 1.5 x 1.0 cm. Impression: No intrauterine identified. Complex cystic structure with peripheral flow within the left ovary could represent a complex cyst however ectopic is not excluded CRITICAL RESULT: Possible ectopic within the left ovary Time of Discovery: 12:40 PM on the day of the exam Time of Communication: 12:45 PM on the day of exam Licensed Practitioner Receiving Report: Dr. Andrade Read Back Performed: Yes. Signer Name: Norman Malcolm MD Signed: 07/22/2021 12:46 PM Workstation Name: [id number] ED Disposition Clinical Impression: Ectopic of left ovary Disposition: ADMITTED INPATIENT Condition: Stable Instructions: Abdominal Pain (ED) <MATT SOLITARIO - Last Filed: 07/22/21 16:10> ED Review of Systems ROS: Stated complaint: POSSIBLE ECTOPIC Other details as noted in HPI ED Course Vital Signs 07/22/21 07/22/21 07/22/21 12:20 15:21 15:24 Temperature 98.7 F Pulse Rate 98 H 88 Respiratory 18 18 Rate Blood Pressure 110/69 119/74 [Right] O2 Sat by Pulse 100 99 100 Oximetry - Consultations Consultation #1: 07/22/21 16:07 Dr baca knitter operator md plans to take pt to the OR for ectopic preg treatment. consent placed on chart ED Medical Decision Making - Lab Data Result diagrams: 07/22/21 12:38 07/22/21 12:38 Critical care attestation.: If time is entered above; I have spent that time in minutes in the direct care of this critically ill patient, excluding procedure time. ED Disposition Is pt being admited?: Yes Time of Disposition: 16:07 (going to OR Dr Erwin kruger)
[2021-07-22 14:12] LABS: Alanine Aminotransferase 18 units/L (7-56)
[2021-07-22 14:23] LABS: Bilirubin,Direct < 0.2 mg/dL (0-0.2)
--- NOTE | 2021-07-22 15:38 | Consultation ---
History of Present Illness - Reason for Consult Consult date: 07/22/21 possible ectopic Requesting physician: JANN MARTINEZ - History of Present Illness Patient is a , LMP 06/17/2019, presenting with lower abdominal pain. Notes it began 1 week ago and she describes it as a sharp cramping pain on her left side. Patient states she took a home UPT and noted it was positive. Presented to an outside facility for an U/S where she was told that she may have an ectopic and to follow up in the emergency department. Denies any nausea, vomiting, or vaginal bleeding. Past History Past Medical History: No medical history Past Surgical History: No surgical history Social history: no significant social history Family history: no significant family history Medications and Allergies Allergies Allergy/AdvReac Type Severity Reaction Status Date / Time No Known Allergies Allergy Verified 09/15/19 22:47 Home Medications Medication Instructions Recorded Confirmed Last Taken Type Nitrofurantoin [place]/M-Cryst 100 mg PO BID #14 capsule 06/21/17 Unknown Rx [Macrobid CAP] Acetaminophen/Codeine [Tylenol #3] 1 tab PO Q6H PRN #7 tab 06/24/17 Unknown Rx Ferrous Sulfate 325 mg PO BID #30 tablet. 11/15/17 Unknown Rx Ibuprofen [Motrin] 600 mg PO Q8H PRN #30 tablet 11/15/17 Unknown Rx oxyCODONE /ACETAMINOPHEN [Percocet 1 tab PO Q6HR PRN #30 tablet 11/15/17 Unknown Rx 5/325] cephALEXin [Keflex] 500 mg PO Q8HR 7 Days #21 cap 09/16/19 Unknown Rx traMADoL [Ultram] 50 mg PO Q6HR PRN #12 tablet 09/16/19 Unknown Rx Neomycin/Bacitracin/Polymyxinb 1 applicatio TP BID #1 oint...g. 10/02/19 Unknown Rx [Triple Antibiotic Ointment] Sulfamethoxazole/Trimethoprim 1 each PO BID 7 Days #14 tablet 10/02/19 Unknown Rx [Bactrim DS TAB] Review of Systems All systems: negative Gastrointestinal: abdominal pain Exam - Constitutional Vitals: Temp Pulse Resp BP Pulse Ox 98.7 F 88 18 119/74 100 07/22/21 12:20 07/22/21 15:24 07/22/21 15:24 07/22/21 15:24 07/22/21 15:24 General appearance: Present: no acute distress, well-nourished - Respiratory Respiratory effort: normal - Extremities Extremities: pulses symmetrical, No edema - Abdominal General gastrointestinal: Present: soft, tender, non-distended Localized gastrointestinal: tender: LLQ - Integumentary Integumentary: Present: clear, warm, dry - Psychiatric Psychiatric: appropriate mood/affect, intact judgment & insight Results - Labs CBC & Chem 7: 07/22/21 12:38 07/22/21 12:38 Labs: Abnormal lab results 07/22/21 07/22/21 07/22/21 Range/Units 12:38 12:38 12:38 MCH 27 L (28-32) pg [place] % (Auto) 7.7 H (0.0-7.3) % Sodium 134 L (137-145) mmol/L Carbon Dioxide 17 L (22-30) mmol/L Creatinine 0.5 L (0.6-1.2) mg/dL HCG, Quant 3510 H (0-4) mIU/mL - Imaging and Cardiology US - abdomen: report reviewed, image reviewed Assessment and Plan Patient imaging and labs reviewed. Ectopic remains high on differential. Findings reviewed with patient. Small complex mass noted near left ovary. Discussed possibility of ectopic , but also may be early TIUP causing elevated HCG level prior to gestations being visible in uterus. Management options received. Medical therapy with methotrexate and surgical management with diagnostic laparoscopy with possible salpingectomy and possible oophorectomy discussed. Risks and benefits of both discussed in detail. Patient desires to proceed with diagnostic laparoscopy. Discussed if ectopic noted during surgery may consider observation to determine if IUP likely or proceed with methotrexate therapy. Patient to decide. Type and screen ordered supervisor sleeping bag department notified for OR staff and setup. Procedure and blood consents signed. - Patient Problems (1) Encounter for assessment for suspected ectopic Current Visit: Yes Status: Acute
[2021-07-22] MEDS ORDERED: ceFAZolin/Water 2 GM/20 ML 2 GM/20 ML SYRINGE IV NR (16:00)
[2021-07-22] MEDS ORDERED: fentaNYL 100 MCG/2 ML INJ ONE (16:46)
[2021-07-22] MEDS ORDERED: ONDANSETRON 4 MG/2 ML INJ ONE (16:46)
[2021-07-22] MEDS ORDERED: propofoL 200 MG/20 ML VIAL IV ONE (16:46)
[2021-07-22] MEDS ORDERED: ROCURONIUM 50 MG/5 ML INJ IV ONE (16:46)
[2021-07-22] MEDS ORDERED: MIDAZOLAM 2 MG/2 ML INJ ONE (16:46)
[2021-07-22] MEDS ORDERED: LIDOCAINE MPF (2%) 20 MG/1 ML VIAL 5 ML ONE (16:46)
[2021-07-22] MEDS ORDERED: BUPIVACAINE/PF (0.5%) 5 MG/1 ML 30 ML VIAL INFILTRATI ONE ×2 (16:50→17:03)
[2021-07-22] MEDS ORDERED: SODIUM CHLORIDE 0.9% IRRIG SOLN 2000 ML IR ONE (16:50)
[2021-07-22] MEDS ORDERED: SODIUM CHLORIDE 0.9% IRR 1,500 ML BOTTLE IR ONE (16:50)
--- NOTE | 2021-07-22 17:28 | Anesthesia Day of Surgery ---
Anesthesia Day of Surgery - Day of Surgery Patient Examined: Yes Patient H&P Reviewed: Yes Patient is NPO: Yes
--- NOTE | 2021-07-22 17:29 | Anesthesia Consultation ---
Anesthesia Consult and Med Hx Date of service: 07/22/21 - Airway Anesthetic Teeth Evaluation: Good ROM Head & Neck: Adequate Mental/Hyoid Distance: Adequate Mallampati Class: Class I Intubation Access Assessment: Good - Pulmonary Exam CTA: Yes - Cardiac Exam Cardiac Exam: RRR - Pre-Operative Health Status ASA Pre-Surgery Classification: ASA1 Proposed Anesthetic Plan: General - Pulmonary Hx Asthma: No COPD: No Hx Pneumonia: No - Cardiovascular System Hx Hypertension: No - Central Nervous System Hx Seizures: No Hx Psychiatric Problems: No - Endocrine Hx Renal Disease: No Hx End Stage Renal Disease: No Hx Hypothyroidism: No Hx Hyperthyroidism: No - Hematic Hx Anemia: No Hx Sickle Cell Disease: (trait) - Other Systems Hx Alcohol Use: No
[2021-07-22] MEDS ORDERED: HYDROmorphone 1 MG/1 ML INJ ONE (19:05)
[2021-07-22] MEDS ORDERED: SUGAMMADEX SODIUM 200 MG/2 ML VIAL IV ONE (19:12)
[2021-07-22] MEDS ORDERED: LACTATED RINGERS 2,000 ML ONE (19:39)
[2021-07-22] MEDS ORDERED: KETOROLAC 30 MG/1 ML INJ ONE (19:40)
--- NOTE | 2021-07-22 19:59 | Post Operative Note ---
Pre-op diagnosis: suspected ectopic Post-op diagnosis: other (left corpus luteal cyst, of unknown location, fibroid uterus) Findings: Two 3 cm pedunculated fibroids on the left side of the uterine body. Left ovary with simple cyst and corpus luteal cyst. Bleeding noted when touched. Left f allopian tube and right fallopian tube and ovary normal in appearance. Procedure: diagnostic laparoscopy, left ovarian cystectomy Anesthesia: GETA Surgeon: PRIMITIVO NUR Estimated blood loss: other (100 ml) Pathology: list (ovarian cyst) Specimen disposition: to lab Condition: stable Disposition: PACU
[2021-07-22] MEDS ORDERED: oxyCODONE /ACETAMINOPHEN 5-325MG TAB PO PRN (20:06)
[2021-07-22] MEDS ORDERED: ONDANSETRON 4 MG/2 ML INJ IV PRN (22:58)
[2021-07-23] MEDS: IBUPROFEN 800 MG TAB PO SCH ×2 (02:27→08:42)
[2021-07-23 07:54] VITALS: BP 107/65
--- NOTE | 2021-07-23 10:11 | Progress Note ---
Assessment and Plan Routine postop care Procedure again reviewed with patient in detail. Corpus luteum cyst noted, but had to be removed. Discussed unable to locate . Will need to follow up outpatient for trend of HCG levels. As unable to locate to determine if normal or abnormal, will replace progesterone orally as source to maintain removed with corpus luteum Prometrium 200 mg BID Ibuprofen and Percocet for pain control Awaiting postop H/H Will discharge this afternoon - Patient Problems (1) Encounter for assessment for suspected ectopic Current Visit: Yes Status: Acute (2) , location unknown Current Visit: Yes Status: Acute (3) Status post laparoscopy Current Visit: Yes Status: Acute Subjective Date of service: 07/23/21 Principal diagnosis: s/p laparoscopic cystectomy Interval history: Patient doing well. NOtes some cramping abdominal pain. VOiding and ambulating minimally. Had some nausea when eating last night, but it has resolved. Objective - Constitutional Vitals: Vital Signs - 12hr 07/22/21 07/22/21 07/22/21 22:53 23:36 23:52 Temperature 97.4 F L Pulse Rate 84 Respiratory 18 18 Rate Blood Pressure 102/68 Blood Pressure [Right] O2 Sat by Pulse 98 96 Oximetry 07/23/21 07/23/21 07/23/21 02:27 04:55 07:10 Temperature 98.3 F 98.0 F Pulse Rate 85 82 Respiratory 16 18 22 Rate Blood Pressure 93/41 Blood Pressure 107/65 [Right] O2 Sat by Pulse 99 Oximetry 07/23/21 07:19 Temperature Pulse Rate Respiratory 14 Rate Blood Pressure Blood Pressure [Right] O2 Sat by Pulse 99 Oximetry General appearance: Present: no acute distress, well-nourished - Respiratory Respiratory effort: normal Extremities: pulses intact, No edema, normal color, Full ROM - Gastrointestinal General gastrointestinal: Present: soft, tender, non-distended, hypoactive bowel sounds, other (laparoscopic incision sites x3 clean, dry, and intact ) - Integumentary Integumentary: clear, warm, dry - Labs CBC & Chem 7: 07/22/21 12:38 07/22/21 12:38 Labs: Abnormal lab results 07/22/21 07/22/21 07/22/21 Range/Units 12:38 12:38 12:38 MCH 27 L (28-32) pg [place] % (Auto) 7.7 H (0.0-7.3) % Sodium 134 L (137-145) mmol/L Carbon Dioxide 17 L (22-30) mmol/L Creatinine 0.5 L (0.6-1.2) mg/dL HCG, Quant 3510 H (0-4) mIU/mL Medications & Allergies - Medications Allergies/Adverse Reactions: Allergies No Known Allergies Allergy (Verified 09/15/19 22:47) Home Medications: Home Medications Medication Instructions Recorded Confirmed Last Taken Type Nitrofurantoin [place]/M-Cryst 100 mg PO BID #14 capsule 06/21/17 Unknown Rx [Macrobid CAP] Acetaminophen/Codeine [Tylenol #3] 1 tab PO Q6H PRN #7 tab 06/24/17 Unknown Rx Ferrous Sulfate 325 mg PO BID #30 tablet.dr 11/15/17 Unknown Rx Ibuprofen [Motrin] 600 mg PO Q8H PRN #30 tablet 11/15/17 Unknown Rx oxyCODONE /ACETAMINOPHEN [Percocet 1 tab PO Q6HR PRN #30 tablet 11/15/17 Unknown Rx 5/325] cephALEXin [Keflex] 500 mg PO Q8HR 7 Days #21 cap 09/16/19 Unknown Rx traMADoL [Ultram] 50 mg PO Q6HR PRN #12 tablet 09/16/19 Unknown Rx Neomycin/Bacitracin/Polymyxinb 1 applicatio TP BID #1 oint...g. 10/02/19 Unknown Rx [Triple Antibiotic Ointment] Sulfamethoxazole/Trimethoprim 1 each PO BID 7 Days #14 tablet 10/02/19 Unknown Rx [Bactrim DS TAB] Ibuprofen [Motrin 800 MG tab] 800 mg PO Q8HR #30 tablet 07/23/21 Unknown Rx oxyCODONE /ACETAMINOPHEN [Percocet 1 tab PO Q6HR PRN #12 tablet 07/23/21 Unknown Rx 5/325] Active Medications: Generic Name Dose Route Start Last Admin Trade Name Freq PRN Reason Stop Dose Admin Cefazolin Sodium 2 gm in 20 mls @ 80 mls/hr 07/22/21 16:00 Ancef/Sterile Water 2 Gm/20 Ml IV 07/23/21 15:59 PREOP NR Protocol Ibuprofen 800 mg 07/23/21 01:00 07/23/21 08:42 Ibuprofen 800 Mg Tab PO 800 mg Q8H TWAN Administration Ondansetron HCl 4 mg 07/22/21 22:58 07/22/21 23:15 Ondansetron 4 Mg/2 Ml Inj IV 4 mg Q8H PRN Administration Nausea And Vomiting Oxycodone/Acetaminophen 1 tab 07/22/21 20:06 07/22/21 22:53 Oxycodone /Acetaminophen 5-325mg Tab PO 1 tab Q6H PRN Administration Pain, Moderate (4-6)
[2021-07-23 10:23] LABS: Basophils % (Auto) 0.4 % (0.0-1.8); Eosinophils % (Auto) 0.1 % (0.0-4.3); Hematocrit 36.3 % (30.3-42.9); Hemoglobin 11.8 gm/dl (10.1-14.3); Lymphocytes # (Auto) 0.9 K/mm3 (1.2-5.4); Lymphocytes % (Auto) 9.4 % (13.4-35.0); Mean Corpuscular HGB Conc 32 % (30-34); Mean Corpuscular Volume 81 fl (79-97); Monocytes # (Auto) 0.6 K/mm3 (0.0-0.8); Monocytes % (Auto) 6.1 % (0.0-7.3); Platelet Count 272 K/mm3 (140-440); Red Blood Count 4.49 M/mm3 (3.65-5.03); Red Cell Distribution Width 13.8 % (13.2-15.2)
--- NOTE | 2021-07-23 10:46 | Discharge Summary ---
Providers - Providers Date of Admission: 07/22/21 15:44 Date of discharge: 07/23/21 Attending physician: PRIMITIVO HOOD MD 07/22/21 14:01 Consult to Physician [CONS] Urgent Comment: Consulting Provider: PRIMITIVO HOOD Physician Instructions: Reason For Exam: Ectopic Primary care physician: [facility] Hospitalization Reason for admission: suspected ectopic Condition: Stable Hospital course: Patient presented to ED with abdominal pain and positive test. HCG 3510, but no IUP noted. Small mass at left ovary. Patient counseled on management options and elected fro diagnostic laparoscopy. To OR for procedure. See operative note for additional details. Patient postop course uncomplicated. Post op H/H 11. Discharged home on POD #1. to follow up for repeat HCG on Saturday, 07/24. Disposition: 01 HOME / SELF CARE / HOMELESS Final Discharge Diagnosis (Prints w/discharge instructions): Status post laparoscopic cystectomy - Discharge Diagnoses (1) Encounter for assessment for suspected ectopic Status: Acute (2) , location unknown Status: Acute (3) Status post laparoscopy Status: Acute Core Measure Documentation - Palliative Care Palliative Care/ Comfort Measures: Not Applicable - Core Measures Any of the following diagnoses?: none Exam - Constitutional Vitals: Temp Pulse Resp BP Pulse Ox 98.0 F 82 14 107/65 99 07/23/21 07:10 07/23/21 07:10 07/23/21 07:19 07/23/21 07:10 07/23/21 07:19 General appearance: Present: no acute distress, well-nourished - Respiratory Respiratory effort: normal - Extremities Extremities: pulses symmetrical, No edema - Abdominal General gastrointestinal: Present: soft, tender (appropriate postoperatively), non-distended, normal bowel sounds, other (incsion sites clean, dry, and intact) - Integumentary Integumentary: Present: clear, warm, dry Plan Activity: advance as tolerated Weight Bearing Status: Full Weight Bearing Diet: regular Wound: keep clean and dry Additional Instructions: Follow up with [facility]: Saturday07/24/2021 at 11:00 AM for lab only visit. Saturday07/28/2021 at 9:45 AM for postoperative visit with Dr. Hood Follow up with: PRIMITIVO HOOD MD [Staff Physician] - 07/24/21 11:00 am (Lab only) Prescriptions: Ibuprofen [Motrin 800 MG tab] 800 mg PO Q8HR #30 tablet oxyCODONE /ACETAMINOPHEN [Percocet 5/325] 1 tab PO Q6HR PRN #12 tablet PRN Reason: Pain Progesterone, Micronized [Prometrium] 200 mg PO BID #60 cap
== END 2021-07-23 13:55 | disposition home or self-care (01) ==
LOC: ED 12:04 → OB 15:44 → ED 17:24
PROVIDERS: ADMIT Student in an Organized Health Care Education/Training Program; ATTEND Student in an Organized Health Care Education/Training Program
DX: O00.202 Left ovarian pregnancy without intrauterine pregnancy (principal); Z32.00 Encounter for pregnancy test, result unknown; Z79.899 Other long term (current) drug therapy; Z3A.00 Weeks of gestation of pregnancy not specified
CPT/HCPCS: 36415; 58662; 76801; 76817; 80048; 80076; 84702; 85025; 86900; 86901; 88305; 96374; 99284; G0378; J1170; J1885; J2250; J2405; J2704; J3010; J3490; J7120; 88304